=== PATIENT | female | born 1995 | race Caucasian/White ===

== ENCOUNTER → 2019-06-22 09:28 | Outpatient (CLI) | payer BC, SELFPAY ==
--- NOTE | 2019-06-22 09:39 | XR_ITS ---
PROCEDURE: XR MULTIPLE SPINE 6+V CLINICAL INDICATION: LOW BACK PAIN COMPARISON: No exams were available for comparison FINDINGS: There is mild anterior wedging of T6 and T7 with loss of 1/4 or less of the vertebral body heights. There is no lucent fracture line. Lumbar vertebrae are of normal height. There is no malalignment. IMPRESSION: No acute findings. Mild anterior wedging T6 and T7. Dictated by: Geovani Gutierrez 06/22/2019 11:35 Electronically signed by Geovani Gutierrez in [facility] 06/22/2019 11:35
== END ==
PROVIDERS: PCP Family Medicine; Visit Provider Physician Assistant
DX: M54.5 Low back pain (principal); M54.6 Pain in thoracic spine
CPT/HCPCS: 72084

== ENCOUNTER → 2019-06-28 14:38 | Outpatient (CLI) | payer BC, SELFPAY ==
--- NOTE | 2019-06-28 14:41 | MR_ITS ---
PROCEDURE: MR THORACIC SPINE WO CON CLINICAL INDICATION: ACUTE MIDLINE LOW BACK PAIN Acute midline back pain COMPARISON: XR MULTIPLE SPINE 6+V from 06/22/2019 TECHNIQUE: Routine multiplanar multi echo sequences are performed without gadolinium enhancement. FINDINGS: There is normal alignment. No acute fracture or dislocation is evident. There is slight decrease in the disc space from T2-T9 with minimal disc desiccation at T6-T7. There is minimal bulging disc noted at T2-T3. There is small right paracentral disc protrusion at T8-T9. No canal stenosis. No paraspinal mass apparent. The spinal cord has an unremarkable appearance. There is mild wedging of the T2, T3, T6 and T7 vertebral bodies anteriorly which may be developmental. No abnormal signal intensity evident at this area.. IMPRESSION: Mild discogenic degenerative changes with minimal bulging disc at T2-T3 and small right paracentral disc protrusion at T8-T9 Minimal wedge contour of T2, T3, T6 and T7 which may be developmental Dictated by: Clark Peterson MD 06/30/2019 07:15 Electronically signed by Clark Peterson MD in [facility] 06/30/2019 07:15
== END ==
PROVIDERS: PCP Family Medicine; Visit Provider Physician Assistant
DX: M54.5 Low back pain (principal)
CPT/HCPCS: 72146

== ENCOUNTER 2023-10-05 14:33 | Outpatient (POV) | payer BC, SELFPAY | END 2023-10-05 23:59 | disposition home or self-care (01) | LOC: SC 14:34 | PROVIDERS: PCP Family Medicine; Visit Provider Dermatology | DX: Z00.00 Encounter for general adult medical examination without abnormal findings (principal) ==